=== PATIENT | female | born 1985 | race Caucasian/White ===

== ENCOUNTER 2020-05-03 13:58 | Emergency (ER) | payer MEDICAID, SELFPAY | END 2020-05-03 16:45 | disposition admitted as inpatient to this hospital (09) | LOC: ER 05-06 01:30 | PROVIDERS: Emergency Provider Family Medicine | DX: F31.9 Bipolar disorder, unspecified (principal); F23 Brief psychotic disorder; F17.210 Nicotine dependence, cigarettes, uncomplicated | CPT/HCPCS: 36415; 80053; 80306; 80307; 81003; 81025; 84443; 85025; 99282; 99285 ==

== ENCOUNTER 2020-05-03 13:58 | Inpatient (IN) | payer MEDICAID, SELFPAY ==
[2020-05-03 13:59] VITALS: BP 119/67; PULSE 105; RESP 18; TEMP 36.7; O2SAT 98; BMI 21.9
[2020-05-03 14:10] VITALS: PULSE 115; RESP 18; O2SAT 97
[2020-05-03 14:48] LABS: HCG Qualitative Urine. Negative (Negative)
[2020-05-03] MEDS: LORazepam 1 mg Tablet 2 MG PO (15:23)
[2020-05-03 15:29] LABS: Acetaminophen < 5.0 ug/mL (10-30); Alanine Aminotransferase 13 U/L (0-33); Albumin Level 4.9 g/dL (3.5-5.2); Alcohol Level < 10 mg/dL (0-10); Alkaline Phosphatase 54 IU/L (35-105); Anion Gap 20.3 (5-19); Aspartate Amino Transferase 20 U/L (0-32); Blood Urea Nitrogen 20 mg/dL (6-20); Calcium 9.9 mg/dL (8.5-10.5); Carbon Dioxide 22 mmol/L (22-29); Chloride 101 mmol/L (98-107); Creatinine Clr Calc Pharmacy 79.5483; Globulin 1.7 g/dL (1.3-4.6); Glomerular Filtration Rate 81.2 mL/min (90-130); Glucose 109 mg/dL (65-115); Osmolality Calculated 285 mOsm/kg (285-295); Potassium 4.3 mmol/L (3.5-5.1); Salicylate < 0.3 mg/dL (3-10); Sodium 139 mmol/L (136-145); Thyroid Stimulating Hormone 1.87 uIU/mL (0.27-4.20); Total Bilirubin 0.3 mg/dL (0.15-1.2); Total Protein 6.6 g/dL (6.6-8.7)
[2020-05-03 15:43] LABS: Add Urine Microscopic? NO
[2020-05-03 15:47] LABS: Bilirubin Urine Neg (NEGATIVE); Blood Urine Neg (Negative); Glucose Urine UA Norm (Normal); Ketones Urine Negative (Negative); Leukocyte Esterase Urine Negative (Negative); Nitrate Urine Negative (Negative); Protein Urine Neg (Negative); Sulfosalicylic Acid Urine Negative (Negative); Urine Appearance Clear (CLEAR); Urine Color Straw (Yellow); Urobilinogen Urine Norm (Negative); pH Urine 8 (5-7)
[2020-05-03 15:53] LABS: Basophils # 0.1 10^3/uL (0.0-0.1); Basophils % 0.7 %; Eosinophils # 0.1 10^3/uL (0.0-0.8); Eosinophils % 1.7 %; Hematocrit 38.2 % (37.0-47.0); Hemoglobin 12.3 g/dL (11.5-15.3); Lymphocytes # 2.3 10^3/uL (0.8-4.8); Lymphocytes % 31.2 %; Mean Corpuscular HGB Conc 32.2 g/dL (30.0-36.0); Mean Corpuscular Hemoglobin 29.1 pg (28.0-34.0); Mean Corpuscular Volume 90.3 fL (81-99); Mean Platelet Volume 11.1 fL (7.4-10.4); Monocytes # 0.5 10^3/uL (0.2-0.9); Monocytes % 7.1 %; Neutrophils # 4.3 10^3/uL (1.8-7.7); Neutrophils % 59.2 %; Nucleated Red Blood Cells % 0 %; Platelet Count 215 10^3/cmm (130-400); Red Blood Count 4.23 10^6/uL (4.1-5.3); Red Cell Distribution Width 13.3 % (12.1-15.1); White Blood Count 7.2 10^3/uL (4.0-10.0)
[2020-05-03 15:55] LABS: Amphetamines Screen Urine Negative (Negative); Barbiturates Screen Urine Negative (Negative); Benzodiazepines Screen Urine Negative (Negative); Cocaine Screen Urine Negative (Negative); Opiate Screen Urine Negative (Negative); PCP Screen Urine Negative (Negative); THC Screen Urine Negative (Negative)
[2020-05-03] MEDS: HYDROcodone-acetaminophen 5-325 mg Tablet 1 TAB PO (16:06)
[2020-05-03 16:07] VITALS: BP 116/74; PULSE 111; RESP 22; TEMP 36.9; O2SAT 97
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
--- NOTE | 2020-05-03 16:16 | PC.NURSE ---
Patient changed into gowns.
[2020-05-03 16:27] VITALS: BP 109/78; PULSE 111; RESP 18; TEMP 36.4; O2SAT 97
[2020-05-03] MEDS: trazodone 50 mg Tablet PO (20:48)
[2020-05-03] MEDS: OLANZapine 5 mg ODT PO (20:48)
[2020-05-03 22:00] VITALS: BP 93/60; PULSE 99; RESP 19; TEMP 36.5; O2SAT 97
[2020-05-04] MEDS: acetaminophen 325 mg Tablet 650 MG PO (05:52)
[2020-05-04 06:00] VITALS: BP 80/47; PULSE 96; RESP 17; TEMP 36.7; O2SAT 99
[2020-05-04] MEDS: hyDROXYzine 25 mg Capsule 50 MG PO ×3 (06:26→20:41)
--- NOTE | 2020-05-04 06:27 | PC.NURSE ---
PRN VISTARIL PT AT NURSES STATION CRYING AND VERY UPSET. PT STATES SHE HAS NOT BEEN OUTSIDE IN SEVEN DAYS. SHE IS HARD TO REDIRECT AND CONTINUES TO CRY. PT GIVEN VISTARIL 50 MG PO FOR ANXIETY. WILL MONITOR FOR MEDICATION EFFECTIVENESS.
--- NOTE | 2020-05-04 06:30 | PC.NURSE ---
Patient came to [facility] nurses station im a manic state. She became tearful wondering what is happening . She stated I have ADD or ADHD, or something like that . she asked that i jurado a note.
[2020-05-04] MEDS: OLANZapine 5 mg ODT PO (07:45)
--- NOTE | 2020-05-04 07:45 | PC.NURSE ---
Patient at nurses station asking for something for anxiety,tearful unable to stand still, stated having slept all night. PRN medication given see MAR.
[2020-05-04] MEDS: nicotine 21 mg Patch 1 PATCH TRANSDERMA (08:31)
[2020-05-04] MEDS: lurasidone 20 mg Tablet 40 MG PO (08:31)
[2020-05-04] MEDS: BuSPIRONE 5 mg Tablet PO ×2 (08:32→17:38)
[2020-05-04] MEDS: fluoxetine 20 mg Capsule PO (08:32)
[2020-05-04] MEDS: gabapentin 300 mg Capsule PO (08:32)
--- NOTE | 2020-05-04 08:50 | PC.NURSE ---
PT BEHAVIOR; Client very agitated this morning very intrusive with staff and other clients. Client has been extremely anxious and agitated requiring redirection from staff. Client continuously closing the door to her room even after staff reminds her that all patients must leave their doors open. Several clients have come to staff stating she is getting in their space. Client given 2mg of ativan with 5mg of haldol and benadryl as ordered prn for severe agitation this morning. Staff will continue to monitor clients behavior. Client currently resting in bed with door to room open respirations are even and unlabored.
[2020-05-04] MEDS: haloperidol inj 5 mg/mL INJ 1 mL IM ×2 (08:51→15:44)
[2020-05-04] MEDS: diphenhydrAMINE 50 mg/mL SDV 1mL IM ×2 (08:51→15:44)
[2020-05-04] MEDS: LORazepam 2 mg/mL INJ 1 mL IM ×2 (08:51→15:44)
--- NOTE | 2020-05-04 08:51 | PC.NURSE ---
Patient extremely anxious , verbally stating feeling aggressive,unable to stand still. PRN IM medications given see MAR
--- NOTE | 2020-05-04 09:30 | PC.NURSE ---
Reassessment , Patient able to stand still and carry on conversation with staff and other patients. patient stated feels much calmer now
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
[2020-05-04 14:00] VITALS: BP 105/72; PULSE 84; RESP 19; TEMP 37.1
--- NOTE | 2020-05-04 15:02 | PC.NURSE ---
patient asking for something for anxiety ,PRN med given see MAR
--- NOTE | 2020-05-04 15:45 | PC.NURSE ---
Patient complaining of anxiety, unable to stand still , asking for PRN med that was given earlier today, med given see MAR
[2020-05-04 20:18] LABS: HCG Qualitative Urine. Negative (Negative)
[2020-05-04 20:36] VITALS: BP 86/55; PULSE 66; RESP 17; TEMP 36.7; O2SAT 96
[2020-05-04] MEDS: trazodone 50 mg Tablet PO (20:41)
--- NOTE | 2020-05-04 21:13 | PC.NURSE ---
pt given prn trazodone and vistaril per request.
[2020-05-05 06:00] VITALS: BP 91/50; PULSE 95; RESP 17; TEMP 37.4; O2SAT 99
[2020-05-05] MEDS: lurasidone 20 mg Tablet 40 MG PO (08:30)
[2020-05-05] MEDS: gabapentin 300 mg Capsule PO (08:30)
[2020-05-05] MEDS: fluoxetine 20 mg Capsule 40 MG PO (08:30)
[2020-05-05] MEDS: hyDROXYzine 25 mg Capsule 50 MG PO (08:30)
[2020-05-05] MEDS: BuSPIRONE 5 mg Tablet PO (08:30)
--- NOTE | 2020-05-05 08:31 | PC.NURSE ---
Addendum entered by Ann Conn LPN 05/05/20 10:13: prn med effective no further c/o anxiety Original Note: PRN VISTARIL 50 MG GIVEN PO PER PT C/O STATED ANXIETY PT REQUESTING AN INJECTION OF ATIVAN FOR HER EYE NO PRN ATIVAN GIVEN CURRENTLY. PT HAD TO BE WOKEN UP TO TAKE SCHEDULED MEDICATIONS & PRN VISTARIL SHE PREVIOUSLY ASKED FOR. WILL CONT TO MONITOR
[2020-05-05] MEDS: nicotine 21 mg Patch 1 PATCH TRANSDERMA (10:18)
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
[2020-05-05] MEDS: acetaminophen 325 mg Tablet 650 MG PO (13:11)
[2020-05-05 13:25] VITALS: BP 91/50; PULSE 95; RESP 17; TEMP 37.4; O2SAT 99
[2020-05-05 13:53] VITALS: BP 81/55; PULSE 102; RESP 18; TEMP 36.7; O2SAT 98
== END 2020-05-05 14:02 | disposition home or self-care (01) | DRG 885 ==
LOC: ER 15:03 → NP 16:26
PROVIDERS: Family Medicine; Admitting Provider Psychiatry & Neurology Psychiatry; Visit Provider Psychiatry & Neurology Psychiatry
DX: F31.2 Bipolar disorder, current episode manic severe with psychotic features (principal); F23 Brief psychotic disorder; R41.83 Borderline intellectual functioning; Z91.410 Personal history of adult physical and sexual abuse
CPT/HCPCS: 12345; 36415; 80053; 80306; 80307; 81003; 81025; 84443; 85025; 96372; 99282; J1200; J1630; J2060

== ENCOUNTER 2020-05-15 13:42 | Inpatient (IN) | payer MEDICAID, SELFPAY ==
[2020-05-15 13:53] VITALS: BP 125/85; PULSE 112; RESP 14; TEMP 37.1; O2SAT 96; BMI 21.1
--- NOTE | 2020-05-15 14:29 | PC.NURSE ---
UA collected and sent to lab
--- NOTE | 2020-05-15 14:48 | W.ED.PSYCH ---
HPI - Psych General: Chief Complaint: Psychiatric Symptoms Stated Complaint: mhe Time Seen by Provider: 05/15/20 14:26 Source: patient Mode of arrival: EMS Limitations: no limitations History of Present Illness: HPI Narrative: Patient is a 34-year-old female with a history of schizophrenia and bipolar here after the [facility] clinic told her to come here stating that she cannot stay there due to her anxiety. Patient tells me that she is extremely anxious and stressed out. She denies hallucinations, suicidal ideations, homicidal ideations. A history is extremely difficult to obtain from patient as her speech is excessive, rapid, pressured, and illogical. She has flight of ideas. She has psychomotor agitation. MD complaint: other (probable salome) History of same: Yes Relieving factors: none Exacerbating factors: none Associated symptoms: Deny auditory hallucinations, visual hallucinations, depression, homicidal ideation or suicidal ideation Review of Systems Const: Denies: fever(s) or chills Card: Denies: chest pain, palpitations, lightheadedness or syncope Resp: Denies: dyspnea GI: Denies: abdominal pain, nausea, vomiting or diarrhea Skin/Breast: Denies: rash Neuro: Denies: headache(s) Psych: Reports: anxiety, irritability and difficulty concentrating; Denies: depression, visual hallucinations, auditory hallucinations, suicidal ideation or homicidal ideation [facility] ED PFSH: Social History Smoking and tobacco status: current every day smoker Current gender identity: Female Physical Exam Const: COMMON NORMALS: no acute distress, patient oriented x3, alert and well nourished GENERAL APPEARANCE: cooperative ORIENTATION/CONSCIOUSNESS: Yes oriented to person and Yes oriented to place Resp: COMMON NORMALS: normal respiratory effort and clear to auscultation bilaterally AUSCULTATION: clear to auscultation bilaterally Cardio: COMMON NORMALS: regular rate and regular rhythm RATE: regular rate RHYTHM: regular rhythm Neuro: COMMON NORMALS: patient oriented x3 SENSORIUM/ORIENTATION: Yes alert, Yes oriented to person and Yes oriented to place Psych: COMMON NORMALS: cooperative APPEARANCE: Yes disheveled and Yes bizarre ATTITUDE: Yes bizarre ACTIVITY/MOTOR BEHAVIOR: Yes appropriate eye contact, Yes psychomotor agitation and Yes hyperactivity SPEECH: Yes excessive, Yes rapid and Yes Pressured speech present MOOD & AFFECT: Yes anxious THOUGHT PROCESS: incoherent, Flight of ideas present, Illogical thought process present and racing thoughts ATTENTION/CONCENTRATION: Yes attention grossly impaired and Yes concentration grossly impaired INSIGHT: Limited insight present (Psych) JUDGEMENT: Limited judgement present (Psych) MDM - Psych Lab Data: Labs: Lab Results 05/15/20 05/15/20 05/15/20 Range/Units 14:27 15:44 15:44 WBC 8.3 (4.0-10.0) 10^3/ uL RBC 4.48 (4.1-5.3) 10^6/u L Hgb 13.0 (11.5-15.3) g/dL Hct 40.2 (37.0-47.0) % MCV 89.7 (81-99) fL MCH 29.0 (28.0-34.0) pg MCHC 32.3 (30.0-36.0) g/dL RDW 13.2 (12.1-15.1) % Plt Count 294 (130-400) 10^3/c mm MPV 10.4 (7.4-10.4) fL Neut % (Auto) 62.7 % Lymph % (Auto) 30.6 % [place] % (Auto) 4.3 % Eos % (Auto) 1.4 % Baso % (Auto) 0.8 % Neut # (Auto) 5.19 (1.8-7.7) 10^3/u L Lymph # (Auto) 2.5 (0.8-4.8) 10^3/u L [place] # (Auto) 0.4 (0.2-0.9) 10^3/u L Eos # (Auto) 0.1 (0.0-0.8) 10^3/u L Baso # (Auto) 0.1 (0.0-0.1) 10^3/u L Nucleated RBC % (a uto) 0 % Nucleated RBCs # 0.0 /100WBC Sodium 137 (136-145) mmol/L Potassium 3.9 (3.5-5.1) mmol/L Chloride 101 (98-107) mmol/L Carbon Dioxide 23 (22-29) mmol/L Anion Gap 16.9 (5-19) BUN 18 (6-20) mg/dL Creatinine 0.8 (0.5-0.9) mg/dL GFR Calculation 81.2 L (90-130) mL/min Glucose 84 (65-115) mg/dL Calculated Osmolal ity 280 L (285-295) mOsm/k g Calcium 9.9 (8.5-10.5) mg/dL Total Bilirubin 0.4 (0.15-1.2) mg/dL AST 18 (0-32) U/L ALT 13 (0-33) U/L Alkaline Phosphata se 63 (35-105) IU/L Total Protein 7.4 (6.6-8.7) g/dL Albumin 5.2 (3.5-5.2) g/dL Globulin 2.2 (1.3-4.6) g/dL HCG, Qual (Negative) Salicylates < 0.3 L (3-10) mg/dL Urine Opiates Scre en Negative (Negative) ng/mL Acetaminophen < 5.0 L (10-30) ug/mL Ur Barbiturates Sc reen Negative (Negative) ng/mL Ur Phencyclidine S crn Negative (Negative) ng/mL Ur Amphetamines Sc reen Negative (Negative) ng/mL U Benzodiazepines Scrn Negative (Negative) ng/mL Urine Cocaine Scre en Negative (Negative) ng/mL U Marijuana (THC) Screen Negative (Negative) ng/mL Ethyl Alcohol < 10 (0-10) mg/dL 05/15/20 Range/Units 15:44 WBC (4.0-10.0) 10^3/ uL RBC (4.1-5.3) 10^6/u L Hgb (11.5-15.3) g/dL Hct (37.0-47.0) % MCV (81-99) fL MCH (28.0-34.0) pg MCHC (30.0-36.0) g/dL RDW (12.1-15.1) % Plt Count (130-400) 10^3/c mm MPV (7.4-10.4) fL Neut % (Auto) % Lymph % (Auto) % [place] % (Auto) % Eos % (Auto) % Baso % (Auto) % Neut # (Auto) (1.8-7.7) 10^3/u L Lymph # (Auto) (0.8-4.8) 10^3/u L [place] # (Auto) (0.2-0.9) 10^3/u L Eos # (Auto) (0.0-0.8) 10^3/u L Baso # (Auto) (0.0-0.1) 10^3/u L Nucleated RBC % (a uto) % Nucleated RBCs # /100WBC Sodium (136-145) mmol/L Potassium (3.5-5.1) mmol/L Chloride (98-107) mmol/L Carbon Dioxide (22-29) mmol/L Anion Gap (5-19) BUN (6-20) mg/dL Creatinine (0.5-0.9) mg/dL GFR Calculation (90-130) mL/min Glucose (65-115) mg/dL Calculated Osmolal ity (285-295) mOsm/k g Calcium (8.5-10.5) mg/dL Total Bilirubin (0.15-1.2) mg/dL AST (0-32) U/L ALT (0-33) U/L Alkaline Phosphata se (35-105) IU/L Total Protein (6.6-8.7) g/dL Albumin (3.5-5.2) g/dL Globulin (1.3-4.6) g/dL HCG, Qual Negative (Negative) Salicylates (3-10) mg/dL Urine Opiates Scre en (Negative) ng/mL Acetaminophen (10-30) ug/mL Ur Barbiturates Sc reen (Negative) ng/mL Ur Phencyclidine S crn (Negative) ng/mL Ur Amphetamines Sc reen (Negative) ng/mL U Benzodiazepines Scrn (Negative) ng/mL Urine Cocaine Scre en (Negative) ng/mL U Marijuana (THC) Screen (Negative) ng/mL Ethyl Alcohol (0-10) mg/dL Discharge Plan Discharge Patient Disposition: Admitted As Inpatient Admit Provider: Osmin Baker Clinical Impression: Bipolar 1 disorder, manic, moderate Schizophrenia Qualifiers: Schizophrenia type: disorganized schizophrenia Qualified Code(s): F20.1 - Disorganized schizophrenia Condition: Stable Referrals: [facility] [Outside] - 05/27/20 9:00 am Discharge Date/Time: 05/15/20 19:19 Coding Level of Care Code ED Rotor Casting Machine Operator for Chg Fwd Exam Expanded Problem Focused
[2020-05-15] MEDS: LORazepam 2 mg/mL INJ 1 mL IM (15:31)
[2020-05-15 15:39] LABS: Amphetamines Screen Urine Negative (Negative); Barbiturates Screen Urine Negative (Negative); Benzodiazepines Screen Urine Negative (Negative); Cocaine Screen Urine Negative (Negative); Opiate Screen Urine Negative (Negative); PCP Screen Urine Negative (Negative); THC Screen Urine Negative (Negative)
[2020-05-15 15:56] LABS: Basophils # 0.1 10^3/uL (0.0-0.1); Basophils % 0.8 %; Eosinophils # 0.1 10^3/uL (0.0-0.8); Eosinophils % 1.4 %; Hematocrit 40.2 % (37.0-47.0); Lymphocytes # 2.5 10^3/uL (0.8-4.8); Lymphocytes % 30.6 %; Mean Corpuscular HGB Conc 32.3 g/dL (30.0-36.0); Mean Corpuscular Volume 89.7 fL (81-99); Mean Platelet Volume 10.4 fL (7.4-10.4); Monocytes # 0.4 10^3/uL (0.2-0.9); Monocytes % 4.3 %; Neutrophils # 5.19 10^3/uL (1.8-7.7); Neutrophils % 62.7 %; Nucleated Red Blood Cells % 0 %; Platelet Count 294 10^3/cmm (130-400); Red Blood Count 4.48 10^6/uL (4.1-5.3); Red Cell Distribution Width 13.2 % (12.1-15.1); White Blood Count 8.3 10^3/uL (4.0-10.0)
[2020-05-15 16:11] LABS: HCG, Serum Qual Negative (Negative)
[2020-05-15 17:21] LABS: Acetaminophen < 5.0 ug/mL (10-30); Alanine Aminotransferase 13 U/L (0-33); Albumin Level 5.2 g/dL (3.5-5.2); Alcohol Level < 10 mg/dL (0-10); Alkaline Phosphatase 63 IU/L (35-105); Anion Gap 16.9 (5-19); Aspartate Amino Transferase 18 U/L (0-32); Blood Urea Nitrogen 18 mg/dL (6-20); Calcium 9.9 mg/dL (8.5-10.5); Carbon Dioxide 23 mmol/L (22-29); Chloride 101 mmol/L (98-107); Globulin 2.2 g/dL (1.3-4.6); Glomerular Filtration Rate 81.2 mL/min (90-130); Glucose 84 mg/dL (65-115); Osmolality Calculated 280 mOsm/kg (285-295); Potassium 3.9 mmol/L (3.5-5.1); Salicylate < 0.3 mg/dL (3-10); Sodium 137 mmol/L (136-145); Total Bilirubin 0.4 mg/dL (0.15-1.2); Total Protein 7.4 g/dL (6.6-8.7)
[2020-05-15 18:15] VITALS: BP 110/61; PULSE 100; O2SAT 99
[2020-05-15 20:03] VITALS: BP 99/57; PULSE 92; RESP 18; TEMP 37; O2SAT 97
[2020-05-15 22:00] VITALS: BP 99/57; PULSE 92; RESP 18; TEMP 37; O2SAT 97
[2020-05-15] MEDS: trazodone 50 mg Tablet PO (22:34)
--- NOTE | 2020-05-15 22:34 | PC.NURSE ---
PRN TRAZODONE PT REQUESTING SLEEP AID. ADMINISTERED TRAZODONE 50 MG PO. WILL MONITOR FOR MEDICATION EFFECTIVENESS.
[2020-05-15] MEDS: ondansetron 4 MG Tablet PO (22:52)
[2020-05-15] MEDS: acetaminophen 325 mg Tablet 650 MG PO (22:56)
--- NOTE | 2020-05-16 00:41 | PC.NURSE ---
PRN ZOFRAN PT GIVEN ZOFRAN 4 MG PO FOR C/O NAUSEA. WILL MONITOR FOR MEDICATION EFFECTIVENESS.
[2020-05-16 06:00] VITALS: BP 90/54; PULSE 86; RESP 18; TEMP 36.9; O2SAT 96
[2020-05-16] MEDS: nicotine 21 mg Patch 1 PATCH TRANSDERMA (08:39)
[2020-05-16] MEDS: acetaminophen 325 mg Tablet 650 MG PO ×2 (10:05→15:03)
[2020-05-16] MEDS: gabapentin 300 mg Capsule PO ×3 (10:06→20:49)
[2020-05-16] MEDS: fluoxetine 20 mg Capsule 40 MG PO (12:54)
[2020-05-16] MEDS: BuSPIRONE 5 mg Tablet PO (12:54)
[2020-05-16 14:00] VITALS: BP 91/56; PULSE 87; RESP 18; TEMP 37.3; O2SAT 98
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
--- NOTE | 2020-05-16 15:04 | PC.NURSE ---
prn acetametaphen 650 MG PO for headache
[2020-05-16] MEDS: trazodone 50 mg Tablet PO (21:01)
[2020-05-16 22:00] VITALS: BP 89/53; PULSE 79; RESP 18; TEMP 36.6; O2SAT 99
[2020-05-17 06:00] VITALS: BP 99/61; PULSE 91; RESP 16; TEMP 37.1; O2SAT 97
[2020-05-17] MEDS: lurasidone 20 mg Tablet 40 MG PO (08:32)
[2020-05-17] MEDS: fluoxetine 20 mg Capsule 40 MG PO (08:33)
[2020-05-17] MEDS: gabapentin 300 mg Capsule PO ×3 (08:33→22:20)
[2020-05-17] MEDS: acetaminophen 325 mg Tablet 650 MG PO (08:33)
--- NOTE | 2020-05-17 09:18 | P.PN_ITS ---
Subjective NPU Subjective: Interval history: Can you restart my pain medication. Otherwise, patient is concerned about her eventual placement and whether she will be allowed to go back to the [facility]. She acknowledges that she will not be able to answer that question for another 2 days. Mental Status Exam MSE Comments: Mental Status Exam: The patient is alert and interpersonally engaged. Her physical appearance is dominated by a set of spectacles which are helped to gather by a large amount amount of electrical tape. She speaks in a rapid and staccato fashion. She speaks mainly in short phrases. She is believed to be a reliable informant to the best of her ability. Unfortunately, her ability is not very well. Appearance: hygiene is poor and malodorous; no gross neurological deficits., gait is unremarkable; AIMS=0 Speech: Speech is of rapid rate and rhythm and and often difficult to understand. However she is now goal-directed and answers to questions are pert inent and relevant. Thought processes: Thought processes are concrete. Judgment is adequate for saf ety. Psychotic processes: There is no indication of guarding or paranoia. There is no attention to the internal stimuli. Auditory and visual hallucinations are denied. Judgment: Insight is fair. Problem solving skills are poor. Orientation: The patient is oriented to person, place time and situation. Memory: no deficits noted in immediate, intermediate, or remote spheres. Attention: The patient is alert and interpersonally engaged. Language: Verbalizations are coherent. Fund of knowledge: Fund of knowledge is quite poor. Affect/Mood: Affect is consistent with a euthymic mood. She denied suicidal ideation Affective range appropriate. Psychosis: perception unimpaired primarily through cognitive deficit; reality testing intact. Vitals/I&O/Wt Last Vital Signs Temp 98.7 F 05/17/20 06:00 Pulse 91 05/17/20 06:00 Resp 16 05/17/20 06:00 BP 99/61 05/17/20 06:00 Pulse Ox 97 05/17/20 06:00 Weight last 48 hrs Weight 50.802 kg Data NPU : 05/15/20 15:44 05/15/20 15:44 A&P Additional A&P Information Diagnoses: Bipolar disorder?by history, hypomanic Cognitive deficit?moderate Assessment: Treatment plan: Due to the psychiatric conditions and treatment listed in the Assessment and Plan - the patient requires continued hospitalization. Will provide a safe and therapeutic environment for patient.. Will continue inpatient treatment to allow for medication adjustment and mo nitoring. Hospital day #1: At this time, we will proceed with the idea that the bipolar diagnosis is accurate. Fluoxetine will be discontinued as there is no indication at this point that an antidepressant would be beneficial and would likely exacerbate her manic symptoms. Gabapentin will be increased to 300 mg 3 times daily and buspirone will be discontinued to reduce polypharmacy. We will engage social work to confirm her story about the [facility] detention and to assist in finding placement following discharge. Hospital day #2: Can you restart my pain medication. Otherwise, patient is c oncerned about her eventual placement and whether she will be allowed to go back to the [facility]. She acknowledges that she will not be able to answer that question for another 2 days. Plan: She does have a prescription for tramadol in her belongings and will restart that medication on a as needed basis. Otherwise no changes and will await placement. Will continue current medications and monitor for medication side effects. Monitor patient's mood, sleep, appetite, and behavior closely. Encourage patient to participate in individual and group therapeutic sessions on the hess. Estimated length of stay 5 days The expected benefits and potential side effects of patient's psychiatric medications were discussed with the patient. The patient understands and consents to treatment.CRITERIA FOR DISCHARGE: stable on medications and no longer an imminent risk Involuntary Hold Information 96 Hour Hold: 96 Hour Involuntary Admission: No Attestations NPU Medical Necessity Statement*: Patient will remain in the hospital another 2-4 nights for assessment of medication efficacy and tolerability. Coding Level of Care Code Acute Chemist Water Purification for Hunter King
[2020-05-17] MEDS: TRAMadol 50 mg Tablet PO ×2 (09:39→17:02)
[2020-05-17] MEDS: hyDROXYzine 25 mg Capsule 50 MG PO ×3 (13:08→22:20)
--- NOTE | 2020-05-17 13:09 | PC.NURSE ---
Addendum entered by Ann Conn LPN 05/17/20 13:53: prn med effective no further c/o anxiety Original Note: PRN VISTARIL 50 MG GIVEN PO PER PT C/O SATED ANXIETY. PRESSURED SPEECH, HAS BEEN OBSESSING ABOUT GETTING MORE PAIN MEDS MOST OF THE DAY. EDUCATED PT THAT SHE IS ON SCHEDULED TRAMADOL, ALSO ALREADY RECEIVED PRN TYLENOL PREVIOUSLY. WILL CONT TO MONITOR.
[2020-05-17 13:38] VITALS: BP 95/60; PULSE 79; RESP 18; TEMP 36.7; O2SAT 99
[2020-05-17] MEDS: nicotine 2 mg Gum BUCCAL (15:24)
[2020-05-17 22:00] VITALS: BP 94/60; PULSE 100; RESP 21; TEMP 36.9; O2SAT 99
[2020-05-18 06:00] VITALS: BP 98/63; PULSE 86; RESP 16; TEMP 36.8; O2SAT 98
[2020-05-18] MEDS: gabapentin 300 mg Capsule PO ×3 (08:56→21:41)
[2020-05-18] MEDS: lurasidone 20 mg Tablet 40 MG PO (08:56)
[2020-05-18] MEDS: TRAMadol 50 mg Tablet PO ×2 (08:56→17:26)
[2020-05-18] MEDS: fluoxetine 20 mg Capsule 40 MG PO (08:57)
[2020-05-18] MEDS: OLANZapine 5 mg ODT PO (09:21)
--- NOTE | 2020-05-18 09:21 | PC.NURSE ---
zyprexa given for anxiety
[2020-05-18 14:00] VITALS: BP 104/69; PULSE 101; RESP 18; TEMP 36.7; O2SAT 98
--- NOTE | 2020-05-18 20:08 | P.PN_ITS ---
Subjective NPU Subjective: Interval history: The patient is her usual cheerful, patient self. She says she is doing just fine and she needs a place to stay. She cannot clearly explain why she got kicked out of the homeless long-term. On the other hand, there is a lot of her history of that is unclear. Medications: Reviewed: Yes Medication Review Details: Current Medications Acetaminophen (Tylenol) 650 mg PO Q4H PRN PRN Reason: MILD PAIN Last Admin: 05/17/20 08:33 Dose: 650 mg Documented by: Benztropine Mesylate (Cogentin) 1 mg PO BID PRN PRN Reason: Mild Extrapyramidal symptoms Camphor/Menthol/Phenol (Blistex) 1 applic TOPICAL Q1H PRN PRN Reason: DRYNESS Diphenhydramine HCl (Benadryl) 50 mg IM ONCE PRN PRN Reason: Severe Extrapyramidal Symptoms Diphenhydramine HCl (Benadryl) 50 mg IM Q4H PRN PRN Reason: Severe Aggression Fluoxetine HCl (Prozac) 40 mg PO DAILY [facility] Last Admin: 05/18/20 08:57 Dose: 40 mg Documented by: Gabapentin (Neurontin) 300 mg PO TID [facility] Last Admin: 05/18/20 15:03 Dose: 300 mg Documented by: Haloperidol (Haldol) 5 mg PO Q4H PRN PRN Reason: AGITATION Haloperidol Lactate (Haldol Inj) 5 mg IM Q4H PRN PRN Reason: Severe Aggression Hydroxyzine Pamoate (Vistaril) 50 mg PO Q6H PRN PRN Reason: ANXIETY Last Admin: 05/17/20 22:20 Dose: 50 mg Documented by: Hydroxyzine Pamoate (Vistaril) 25 mg PO BID PRN PRN Reason: Anxiety Loperamide HCl (Imodium Capsule) 2 mg PO Q6H PRN PRN Reason: DIARRHEA Lorazepam (Ativan) 2 mg IM Q4H PRN PRN Reason: Severe Aggression Lurasidone HCl (Latuda) 40 mg PO DAILY [facility] Last Admin: 05/18/20 08:56 Dose: 40 mg Documented by: Nicotine (Nicoderm 21 Mg Patch) 1 patch TRANSDERMA DAILY PRN PRN Reason: NICOTINE WITHDRAWAL Last Admin: 05/16/20 08:39 Dose: 1 patch Documented by: Nicotine Polacrilex (Nicorette) 2 mg BUCCAL Q2H PRN PRN Reason: NICOTINE WITHDRAWAL Last Admin: 05/17/20 15:24 Dose: 2 mg Documented by: Olanzapine (Zyprexa Zydis) 5 mg PO Q4H PRN PRN Reason: Agitation/Psychosis Last Admin: 05/18/20 09:21 Dose: 5 mg Documented by: Ondansetron HCl (Zofran) 4 mg PO Q6H PRN PRN Reason: NAUSEA AND VOMITING Last Admin: 05/15/20 22:52 Dose: 4 mg Documented by: Tramadol HCl (Ultram) 50 mg PO BID [facility] Last Admin: 05/18/20 17:26 Dose: 50 mg Documented by: Mental Status Exam MSE Comments: The patient is sleepy. She was aroused for the interview, unfortunately. We had so many admissions I was unable to get to many of the patient's early, for which I apologized to her. She was fine and with it. Mood is cheerful and affect is appropriate. Thought processes are integrated and free of any racing, blocking or looseness of association. Speech is of normal rate and volume, without dysarthria, aprosody or pressure. Cognitive function is said to be limited but was not tested this evening. She is pretty sleepy. She denies suicidal or homicidal ideation, plan or intent. Insight and judgment are sufficient for discharge to a long-term or half-way. Vitals/I&O/Wt Last Vital Signs Temp 98.1 F 05/18/20 14:00 Pulse 101 H 05/18/20 14:00 Resp 18 05/18/20 14:00 BP 104/69 05/18/20 14:00 Pulse Ox 98 05/18/20 14:00 Weight last 48 hrs Weight 130 lb 1.6 oz Physical Exam Narrative: EXAM NARRATIVE: Const: COMMON NORMALS: no acute distress, patient oriented x3, alert and well nourished GENERAL APPEARANCE: cooperative ORIENTATION/CONSCIOUSNESS: Yes oriented to person and Yes oriented to place Resp: COMMON NORMALS: normal respiratory effort and clear to auscultation bilaterally AUSCULTATION: clear to auscultation bilaterally Cardio: COMMON NORMALS: regular rate and regular rhythm RATE: regular rate RHYTHM: regular rhythm Neuro: COMMON NORMALS: patient oriented x3 SENSORIUM/ORIENTATION: Yes alert, Yes oriented to person and Yes oriented to place Psych: COMMON NORMALS: cooperative APPEARANCE: Yes disheveled and Yes bizarre ATTITUDE: Yes bizarre ACTIVITY/MOTOR BEHAVIOR: Yes appropriate eye contact, Yes psychomotor agitation and Yes hyperactivity SPEECH: Yes excessive, Yes rapid and Yes Pressured speech present MOOD & AFFECT: Yes anxious THOUGHT PROCESS: incoherent, Flight of ideas present, Illogical thought process present and racing thoughts ATTENTION/CONCENTRATION: Yes attention grossly impaired and Yes concentration grossly impaired INSIGHT: Limited insight present (Psych) JUDGEMENT: Limited judgement present (Psych) Data NPU : 05/15/20 15:44 05/15/20 15:44 A&P Assessment and plan (1) Bipolar 1 disorder, manic, moderate: I am cutting down on the fluoxetine to 20 mg/day millimeters will probably go further. I am considering lithium. We shall see Status: Acute (2) Borderline intellectual functioning: The patient is stable and able to care for herself in a half-way environment. Status: Acute Involuntary Hold Information 96 Hour Hold: 96 Hour Involuntary Admission: No Attestations NPU Medical Necessity Statement*: I anticipate 2-3 midnights additional hospitalization. Time Spent in Patient Care: 16 - 35 minutes (>than 50% of time spent in counselling and/or direct pt care on unit) . Coding Level of Care Code Acute Gag Writer for Hunter Degrootd Diagnoses Bipolar 1 disorder, manic, moderate F31.12 Borderline intellectual functioning R41.83
[2020-05-18] MEDS: hyDROXYzine 25 mg Capsule 50 MG PO (21:41)
[2020-05-18 22:00] VITALS: BP 78/45; PULSE 75; RESP 16; TEMP 36.7; O2SAT 98
[2020-05-19 06:00] VITALS: BP 93/61; PULSE 87; RESP 17; TEMP 36.4; O2SAT 97
[2020-05-19] MEDS: hyDROXYzine 25 mg Capsule 50 MG PO ×2 (06:56→15:47)
--- NOTE | 2020-05-19 06:56 | PC.NURSE ---
PRN VISTARIL ADMINISTERED VISTARIL 50MG FOR PT C/O ANXIETY. WILL MONITOR FOR MEDICATION EFFECTIVENESS.
[2020-05-19] MEDS: gabapentin 300 mg Capsule PO ×3 (08:11→23:17)
[2020-05-19] MEDS: fluoxetine 20 mg Capsule PO (08:12)
[2020-05-19] MEDS: TRAMadol 50 mg Tablet PO ×2 (08:12→16:53)
[2020-05-19] MEDS: lurasidone 20 mg Tablet 40 MG PO (08:12)
[2020-05-19] MEDS: OLANZapine 5 mg ODT PO (08:15)
--- NOTE | 2020-05-19 09:05 | PC.NURSE ---
PATIENT PRESENTED TO NURSES STATION COMPLAINING OF CHEST PAIN AND IT IS MAKING HER EARS HURT . PATIENT REPORTS THAT SHE DOES NOT FEEL THE PAIN IS CARDIAC RELATED BUT MORE ANXIETY RELATED. PATIENT WAS INFORMED THAT SHE HAD ALREADY BEEN GIVEN ZYPREXA PRN THIS AM WITH HER MORNING MEDS AND SHE NEEDED TO GIVE IT SOME MORE TIME TO KICK IN. PATIENT WAS AGREEABLE AND COOPERATIVE WITH THIS. WILL CONTINUE TO MONITOR.
[2020-05-19 13:57] VITALS: BP 98/61; PULSE 84; RESP 18; TEMP 36.7; O2SAT 96
--- NOTE | 2020-05-19 15:47 | PC.NURSE ---
PRN VISTARIL VISTARIL 50MG PO PER PATIENT C/O ANXIETY. WILL CONTINUE TO MONITOR FOR MEDICATION EFFECTIVENESS.
--- NOTE | 2020-05-19 16:40 | PC.NURSE ---
PRN VISTARIL FOLLOW UP MEDICATION EFFECTIVE. NO FURTHER C/O ANXIETY.
[2020-05-19] MEDS: diphenhydrAMINE 50 mg/mL SDV 1mL IM (17:24)
--- NOTE | 2020-05-19 17:25 | PC.NURSE ---
Patient Behavior Physician ordered 50 mg of Benadryl, 1 mg Ativan, 2 mg cogentin all IM for extraprymidal symptoms she displays in his office-clenching teeth. Will continue to monitor.
--- NOTE | 2020-05-19 17:26 | PM.NPN ---
Subjective NPU Subjective: Interval history: Mood is cheerful and affect is appropriate. Thought processes are integrated and free of any racing, blocking or looseness of association. Speech is of normal rate and volume, without dysarthria, aprosody or pressure. Cognitive function is said to be limited but was not tested this evening. She is pretty sleepy. She denies suicidal or homicidal ideation, plan or intent. Insight and judgment are sufficient for discharge to a halfway or long term. Medications: Reviewed: Yes Medication Review Details: Current Medications Acetaminophen (Tylenol) 650 mg PO Q4H PRN PRN Reason: MILD PAIN Last Admin: 05/17/20 08:33 Dose: 650 mg Documented by: Benztropine Mesylate (Cogentin) 1 mg PO BID PRN PRN Reason: Mild Extrapyramidal symptoms Camphor/Menthol/Phenol (Blistex) 1 applic TOPICAL Q1H PRN PRN Reason: DRYNESS Diphenhydramine HCl (Benadryl) 50 mg IM ONCE PRN PRN Reason: Severe Extrapyramidal Symptoms Last Admin: 05/19/20 17:24 Dose: 50 mg Documented by: Diphenhydramine HCl (Benadryl) 50 mg IM Q4H PRN PRN Reason: Severe Aggression Fluoxetine HCl (Prozac) 20 mg PO DAILY [facility] Last Admin: 05/19/20 08:12 Dose: 20 mg Documented by: Gabapentin (Neurontin) 300 mg PO TID [facility] Last Admin: 05/19/20 14:24 Dose: 300 mg Documented by: Haloperidol (Haldol) 5 mg PO Q4H PRN PRN Reason: AGITATION Haloperidol Lactate (Haldol Inj) 5 mg IM Q4H PRN PRN Reason: Severe Aggression Hydroxyzine Pamoate (Vistaril) 50 mg PO Q6H PRN PRN Reason: ANXIETY Last Admin: 05/19/20 15:47 Dose: 50 mg Documented by: Hydroxyzine Pamoate (Vistaril) 25 mg PO BID PRN PRN Reason: Anxiety Loperamide HCl (Imodium Capsule) 2 mg PO Q6H PRN PRN Reason: DIARRHEA Lorazepam (Ativan) 2 mg IM Q4H PRN PRN Reason: Severe Aggression Lurasidone HCl (Latuda) 40 mg PO DAILY [facility] Last Admin: 05/19/20 08:12 Dose: 40 mg Documented by: Nicotine (Nicoderm 21 Mg Patch) 1 patch TRANSDERMA DAILY PRN PRN Reason: NICOTINE WITHDRAWAL Last Admin: 05/16/20 08:39 Dose: 1 patch Documented by: Nicotine Polacrilex (Nicorette) 2 mg BUCCAL Q2H PRN PRN Reason: NICOTINE WITHDRAWAL Last Admin: 05/17/20 15:24 Dose: 2 mg Documented by: Olanzapine (Zyprexa Zydis) 5 mg PO Q4H PRN PRN Reason: Agitation/Psychosis Last Admin: 05/19/20 08:15 Dose: 5 mg Documented by: Ondansetron HCl (Zofran) 4 mg PO Q6H PRN PRN Reason: NAUSEA AND VOMITING Last Admin: 05/15/20 22:52 Dose: 4 mg Documented by: Tramadol HCl (Ultram) 50 mg PO BID [facility] Last Admin: 05/19/20 16:53 Dose: 50 mg Documented by: The patient complains of her eyes trying to roll up and her teeth are clenched. She said she had this on an antipsychotic before and was given Benadryl Ativan and something else , possibly Cogentin Mental Status Exam MSE Comments: The patient is about the same. She is cheerful and bright but can't open her mouth. Her teeth are clenched. Her mental status has not changed and, but for this adverse reaction to an antipsychotic, we could continue to seek discharge arrangements. That is not going to happen just yet. Vitals/I&O/Wt Last Vital Signs Temp 98.0 F 05/19/20 13:57 Pulse 84 05/19/20 13:57 Resp 18 05/19/20 13:57 BP 98/61 05/19/20 13:57 Pulse Ox 96 05/19/20 13:57 Weight last 48 hrs Weight 130 lb 1.6 oz Data NPU : 05/15/20 15:44 05/15/20 15:44 Involuntary Hold Information 96 Hour Hold: 96 Hour Involuntary Admission: No Attestations NPU Medical Necessity Statement*: I anticipate 3-5 additional midnights stay. Time Spent in Patient Care: Greater than 35 minutes (>than 50% of time spent in counselling and/or direct pt care on unit). Dealing with oculogyric crisis and clench teeth. Coding Level of Care Code Acute Traffic Lieutenant for Hunter King
[2020-05-19] MEDS: LORazepam 2 mg/mL INJ 1 mL 1 MG IM (17:31)
[2020-05-19] MEDS: benztropine 1 mg/mL SDV 2 mL 2 MG IM (17:32)
[2020-05-19 20:50] VITALS: BP 92/55; PULSE 93; RESP 22; TEMP 37.1; O2SAT 99
[2020-05-19] MEDS: trazodone 50 mg Tablet PO (23:17)
--- NOTE | 2020-05-19 23:17 | PC.NURSE ---
PRN TRAZODONE PT REQUESTING SLEEP AID. TRAZODONE 50MG PO ADMINISTERED. WILL MONITOR FOR MEDICATION EFFECTIVENESS.
[2020-05-20 06:00] VITALS: BP 115/80; PULSE 94; RESP 18; TEMP 36.7; O2SAT 97
[2020-05-20] MEDS: benztropine 1 mg Tablet 2 MG PO ×2 (07:14→17:33)
[2020-05-20] MEDS: diphenhydrAMINE 50 mg Capsule PO ×2 (07:14→17:33)
--- NOTE | 2020-05-20 08:00 | PC.NURSE ---
refused scheduled Latuda this morning
[2020-05-20] MEDS: gabapentin 300 mg Capsule PO ×3 (08:09→21:05)
[2020-05-20] MEDS: fluoxetine 20 mg Capsule PO (08:09)
[2020-05-20] MEDS: TRAMadol 50 mg Tablet PO ×2 (08:09→17:33)
[2020-05-20] MEDS: nicotine 2 mg Gum BUCCAL (09:13)
[2020-05-20] MEDS: nicotine 21 mg Patch 1 PATCH TRANSDERMA (10:44)
[2020-05-20 14:00] VITALS: BP 96/63; PULSE 90; RESP 18; TEMP 37.4; O2SAT 98
[2020-05-20] MEDS: LORazepam 1 mg Tablet PO ×2 (14:36→17:33)
--- NOTE | 2020-05-20 15:16 | P.PN_ITS ---
Subjective NPU Subjective: Interval history: Patient still complains of difficulty with her jaws. She is not having any oculogyric issues. She insists that the Ativan is an important adjunct to the Cogentin and I am yielding on that point. I will add lorazepam 1 mg twice daily along with the Cogentin 2 mg twice daily. She asked that her Zyprexa be returned to her. She said it was helpful. She is eager to leave but I told her we need to see these meds together and, if all is well tomorrow perhaps she can call her to come and get her. Medications: Reviewed: Yes Medication Review Details: Current Medications Acetaminophen (Tylenol) 650 mg PO Q4H PRN PRN Reason: MILD PAIN Last Admin: 05/17/20 08:33 Dose: 650 mg Documented by: Benztropine Mesylate (Cogentin) 2 mg IM Q12H PRN PRN Reason: EXTRAPYRAMIDAL SYMPTOM Benztropine Mesylate (Cogentin) 2 mg PO BID [facility] Last Admin: 05/20/20 07:14 Dose: 2 mg Documented by: Camphor/Menthol/Phenol (Blistex) 1 applic TOPICAL Q1H PRN PRN Reason: DRYNESS Diphenhydramine HCl (Benadryl) 50 mg IM ONCE PRN PRN Reason: Severe Extrapyramidal Symptoms Last Admin: 05/19/20 17:24 Dose: 50 mg Documented by: Diphenhydramine HCl (Benadryl) 50 mg IM Q4H PRN PRN Reason: Severe Aggression Diphenhydramine HCl (Benadryl) 50 mg PO Q12H [facility] Last Admin: 05/20/20 07:14 Dose: 50 mg Documented by: Divalproex Sodium (Depakote Dr) 250 mg PO BID [facility] Fluoxetine HCl (Prozac) 20 mg PO DAILY [facility] Last Admin: 05/20/20 08:09 Dose: 20 mg Documented by: Gabapentin (Neurontin) 300 mg PO TID [facility] Last Admin: 05/20/20 14:10 Dose: 300 mg Documented by: Haloperidol (Haldol) 5 mg PO Q4H PRN PRN Reason: AGITATION Haloperidol Lactate (Haldol Inj) 5 mg IM Q4H PRN PRN Reason: Severe Aggression Hydroxyzine Pamoate (Vistaril) 50 mg PO Q6H PRN PRN Reason: ANXIETY Last Admin: 05/19/20 15:47 Dose: 50 mg Documented by: Hydroxyzine Pamoate (Vistaril) 25 mg PO BID PRN PRN Reason: Anxiety Loperamide HCl (Imodium Capsule) 2 mg PO Q6H PRN PRN Reason: DIARRHEA Lorazepam (Ativan) 2 mg IM Q4H PRN PRN Reason: Severe Aggression Lorazepam (Ativan) 1 mg PO BID [facility] Nicotine (Nicoderm 21 Mg Patch) 1 patch TRANSDERMA DAILY PRN PRN Reason: NICOTINE WITHDRAWAL Last Admin: 05/20/20 10:44 Dose: 1 patch Documented by: Nicotine Polacrilex (Nicorette) 2 mg BUCCAL Q2H PRN PRN Reason: NICOTINE WITHDRAWAL Last Admin: 05/20/20 09:13 Dose: 2 mg Documented by: Olanzapine (Zyprexa Zydis) 5 mg PO Q4H PRN PRN Reason: Agitation/Psychosis Last Admin: 05/19/20 08:15 Dose: 5 mg Documented by: Olanzapine (Zyprexa Zydis) 10 mg PO BEDTIME [facility] Ondansetron HCl (Zofran) 4 mg PO Q6H PRN PRN Reason: NAUSEA AND VOMITING Last Admin: 05/15/20 22:52 Dose: 4 mg Documented by: Tramadol HCl (Ultram) 50 mg PO BID [facility] Last Admin: 05/20/20 08:09 Dose: 50 mg Documented by: Trazodone HCl (Desyrel) 50 mg PO BEDTIME PRN PRN Reason: SLEEP Last Admin: 05/19/20 23:17 Dose: 50 mg Documented by: Mental Status Exam MSE Comments: The patient is cheerful and bright. Her thought processes are integrated and she has some speech impediment but it is not true dysarthria. There is no evidence of psychosis, such as but not limited to hallucination, delusion or ideas of reference. Cognitive functions appear to be limited but enough to function in her home environment. She tends to see medication as a major solution to her problems. Vitals/I&O/Wt Last Vital Signs Temp 99.4 F 05/20/20 14:00 Pulse 90 05/20/20 14:00 Resp 18 05/20/20 14:00 BP 96/63 05/20/20 14:00 Pulse Ox 98 05/20/20 14:00 05/19/20 05/20/20 05/20/20 23:59 07:59 15:59 Intake Total 240 Balance 240 Physical Exam Narrative: EXAM NARRATIVE: Except for the tension in her jaw muscles, which I attribute to EPS from [facility], the patient's exam is unchanged. Data NPU : 05/15/20 15:44 05/15/20 15:44 A&P Assessment and plan (1) Bipolar 1 disorder, manic, moderate: The patient says he has done well on Depakote and this will be essayed. Status: Acute (2) Borderline intellectual functioning: Very clear patient education will have to be undertaken. Status: Acute Involuntary Hold Information 96 Hour Hold: 96 Hour Involuntary Admission: No Attestations NPU Medical Necessity Statement*: I anticipate 2-3 midnights, depending on the patient's response. Time Spent in Patient Care: Greater than 35 minutes (>than 50% of time spent in counselling and/or direct pt care on unit) . 60 minutes with complete review and adjustment of pharmacotherapy. Coding Level of Care Code Acute Tile Picker for Chg Fwd Diagnoses Bipolar 1 disorder, manic, moderate F31.12 Borderline intellectual functioning R41.83
[2020-05-20] MEDS: divalproex DR 250 mg Tablet PO (17:33)
[2020-05-20 19:57] VITALS: BP 89/58; PULSE 88; RESP 16; TEMP 37; O2SAT 98
[2020-05-20] MEDS: trazodone 50 mg Tablet PO (21:05)
--- NOTE | 2020-05-20 21:05 | PC.NURSE ---
PRN TRAZODONE PT REQUESTING SLEEP AID. TRAZODONE 50MG PO ADMINISTERED. WILL MONITOR FOR MEDICATION EFFECTIVENESS
[2020-05-20] MEDS: OLANZapine 10 mg ODT PO (21:06)
[2020-05-21 05:47] VITALS: BP 96/62; PULSE 98; RESP 18; TEMP 36.8; O2SAT 98
--- NOTE | 2020-05-21 08:13 | PM.NDC ---
Diagnoses at Discharge Discharge Diagnosis (1) Bipolar 1 disorder, manic, moderate: Status: Acute Problem details: Patient now stable on pharmacotherapy. (2) Borderline intellectual functioning: Status: Acute Problem details: Patient has a support of her local [facility] and her . Reason for Visit Reason for Visit: e Hospital Course Hospital Course The patient remained stable and asymptomatic except for mental status. Latterly EPS has interfered with treatment and we have to readjust. We have resolved the problem by removing Latuda from her regimen and covering the trismus and oculogyric crisis with Cogentin and Ativan. Benadryl makes her feel freaking . Involuntary Hold Information 96 Hour Hold: 96 Hour Involuntary Admission: No Mental Status Exam MSE Comments: The patient is cheerful and bright. Her thought processes are integrated and she has some speech impediment but it is not true dysarthria. There is no evidence of psychosis, such as but not limited to hallucination, delusion or ideas of reference. Cognitive functions appear to be limited but enough to function in her home environment. She tends to see medication as a major solution to her problems. She denies suicidal or homicidal ideation, plan or intent. She is deemed safe to go home to her . Physical Exam Narrative: EXAM NARRATIVE: EXAM NARRATIVE: The patient's exam is unchanged. Discharge Data Vitals: Last Vital Signs Temp 98.3 F 05/21/20 05:47 Pulse 98 05/21/20 05:47 Resp 18 05/21/20 05:47 BP 96/62 05/21/20 05:47 Pulse Ox 98 05/21/20 05:47 Discharge Plan Discharge Patient Disposition: Home, Self-Care Condition: Stable Prescriptions: New divalproex 250 mg Tablet,Delayed Release (Dr/Ec) 250 mg PO BID 30 Days Qty: 60 RF: 0 benztropine 1 mg Tablet 2 mg PO BID 30 Days Qty: 120 RF: 0 gabapentin 300 mg Capsule 300 mg PO TID 30 Days Qty: 90 RF: 0 lorazepam 1 mg Tablet 1 mg PO BID 14 Days Qty: 28 RF: 0 olanzapine 10 mg tablet 10 mg PO BEDTIME 30 Days RF: 0 Continued fluoxetine 20 mg Capsule 40 mg PO DAILY 30 Days Qty: 60 RF: 1 buspirone 5 mg Tablet 5 mg PO BID 30 Days Qty: 60 RF: 1 hydroxyzine pamoate 25 mg Capsule 25 mg PO BID PRN (Reason: Anxiety) 30 Days Qty: 60 RF: 1 Discontinued gabapentin 300 mg Capsule 300 mg PO DAILY 30 Days Qty: 30 RF: 1 Latuda 40 mg Tablet 40 mg PO DAILY 30 Days Qty: 30 RF: 1 Discharge Orders: Discharge Order (Routine); Ordered 05/21/20 Ordered By: Michael Rodriguez Referrals: [facility] [Outside] - 05/27/20 9:00 am Discharge Diet: Usual diet Discharge Activity: Increase activity as tolerated Discharge Attestations NPU Time Spent in Discharge Care*: greater than 30 min Specific Discharge Activities: Specific discharge activities: educating patient, discussing with pcp/other providers, discussing with case management rn/social workers/dc planners, documenting/other paperwork and evaluating patient/reviewing data Other discharge activites (optional): At least a half an hour reviewing discharge medicines and follow-up care in patient education. Status at Discharge: Cognitive status at discharge: mildly impaired cognition, Behavioral status at discharge: cooperative, Functional status at discharge: independent ambulation Overall status at discharge: patient is back to baseline Coding Level of Care Code Acute Electrifier Operator for g Fwd Diagnoses Bipolar 1 disorder, manic, moderate F31.12 Borderline intellectual functioning R41.83
[2020-05-21] MEDS: divalproex DR 250 mg Tablet PO (08:17)
[2020-05-21] MEDS: fluoxetine 20 mg Capsule PO (08:17)
[2020-05-21] MEDS: benztropine 1 mg Tablet 2 MG PO (08:17)
[2020-05-21] MEDS: diphenhydrAMINE 50 mg Capsule PO (08:18)
[2020-05-21] MEDS: LORazepam 1 mg Tablet PO (08:18)
[2020-05-21] MEDS: TRAMadol 50 mg Tablet PO (08:18)
[2020-05-21] MEDS: gabapentin 300 mg Capsule PO ×2 (08:18→14:46)
[2020-05-21 09:12] VITALS: BP 96/62; PULSE 98; RESP 18; TEMP 36.8; O2SAT 98
== END 2020-05-21 16:33 | disposition home or self-care (01) | DRG 885 ==
LOC: ER 15:01 → NP 18:19
PROVIDERS: Admitting Provider Psychiatry & Neurology Psychiatry; Emergency Provider Physician Assistant; Visit Provider Psychiatry & Neurology Psychiatry
DX: F31.12 Bipolar disorder, current episode manic without psychotic features, moderate (principal); R41.83 Borderline intellectual functioning
CPT/HCPCS: 12345; 80053; 80306; 80307; 84703; 85025; 96372; 99284; J0515; J1200; J2060; Q0162; Q0163

== ENCOUNTER 2020-05-15 13:42 | Emergency (ER) | payer MEDICAID, SELFPAY | END 2020-05-15 19:19 | disposition admitted as inpatient to this hospital (09) | LOC: ER 05-16 02:20 | PROVIDERS: Emergency Provider Physician Assistant | DX: F20.1 Disorganized schizophrenia (principal); F30.9 Manic episode, unspecified; F17.210 Nicotine dependence, cigarettes, uncomplicated | CPT/HCPCS: 80053; 80306; 80307; 84703; 85025; 96372; 99284; 99285; J2060 ==